=== PATIENT | male | born 1960 | race Caucasian/White ===

== ENCOUNTER 2022-03-14 09:44 | Outpatient (CLI) | payer BC, SELFPAY | END 2022-03-14 09:45 | disposition home or self-care (01) | LOC: NFLDREF 16:44 | PROVIDERS: PCP Family Medicine; Visit Provider Emergency Medicine | DX: R19.7 Diarrhea, unspecified (principal) | CPT/HCPCS: 87329 ==

== ENCOUNTER 2022-05-14 07:56 | Day surgery (SDC) | payer BC, SELFPAY ==
[2022-05-14] VITALS (13 sets, daily range): BP systolic 135–167; BP diastolic 77–102; PULSE 41–62; RESP 12–16; TEMP 36.1–36.7; O2SAT 92–98; BMI 29.2
[2022-05-14] MEDS: SODIUM CHLORIDE 0.9 % (FLUSH) 10 ML SYRINGE IVF (08:35)
[2022-05-14] MEDS: LACTATED RINGERS 1000 ML 1,000 ML 100 ML IV (08:35)
[2022-05-14] MEDS: CEFAZOLIN 2 GM INJ IVP (09:15)
[2022-05-14] MEDS: BUPIVACAINE 0.25% 30 ML INJECTION (09:20)
--- NOTE | 2022-05-14 10:09 | P.GSOP_ITS ---
Operative Note Date of procedure: 05/14/22 Type of Procedure: 1. Open umbilical hernia repair with mesh. Procedure Description: After discussing the risks and benefits of the procedure, the patient signed informed consent.? The operative site was marked and the patient was brought to the operating room and placed on the operating table in supine position.? Care was taken to pad the patient's pressure points.?? The patient was then intubated by anesthesia.?? The operative site was then prepped and draped in the usual sterile fashion.? A time-out was then performed. ? Local anesthetic was injected at the surgical site. A curvilinear skin incision was made with a scalpel just below umbilicus. Subcutaneous tissue was dissected with electrocautery down to the hernia sac and anterior fascia. The hernia sac was dissected off of the anterior fascia and subcutaneous fat around the fascial defect was dissected away from the fascial defect with cautery. Preperitoneal fat was incarcerated through the fascial defect. I then developed preperitoneal space for mesh insertion. Hemostasis was achieved with cautery. The fascial defect was approximately 2.2 cm. A 6.3 cm in diameter Ventralex ST mesh patch was then inserted into preperitoneal space and secured to the fascia using 0-0 Neurolon interrupted stitches. I examined my closure and no defects were identified between the fascia and the mesh. Fascia was re-approximated over the mesh with a running 2-0 Vicryl stitch. Additional local anesthetic was injected into the anterior fascia. An umbilicus was tacked down to the fascia with interrupted 3-0 Vicryl stitches. Subdermal layer was closed with interrupted sutures using 3-0 Vicryl. Skin was closed with 4-0 Monocryl using subcuticular stitch. Steri strips were applied over the incision. I then placed a folded ster ile 4x4 gauze over the incision and covered it with tape. All counts were correct at the end of the case. Patient tolerated the procedure well and was transferred to PACU without any complications. Findings: Umbilical hernia with incarcerated preperitoneal fat. Repaired with medium- sized mesh. Anesthesia: GETA Surgeon: Chela Lua MD Condition: stable Disposition: PACU
--- NOTE | 2022-05-14 10:17 | W.ANESCHARGE ---
Anesthesia Charges Start Date/Time Anesthesia Start Date: 05/14/22 Anesthesia Start Time: 09:03 Stop Date/Time Anesthesia Stop Date: 05/14/22 Anesthesia Stop Time: 10:15 Summary Emergency: No
--- NOTE | 2022-05-14 10:27 | W.ANESCHARGE ---
Anesthesia Charges Start Date/Time Anesthesia Start Date: 05/14/22 Anesthesia Start Time: 09:03 Stop Date/Time Anesthesia Stop Date: 05/14/22 Anesthesia Stop Time: 10:15 Summary Emergency: No
[2022-05-14] MEDS: TRAMADOL HCL 50 MG TABLET PO (11:14)
== END 2022-05-14 12:05 | disposition home or self-care (01) ==
PROVIDERS: PCP Family Medicine; Visit Provider Surgery
PROC: (CPT 49587; principal; 2022-05-14 09:20)
DX: K42.0 Umbilical hernia with obstruction, without gangrene (principal)
CPT/HCPCS: 49587; 00750; A9270; C1781; J0330; J0690; J1720; J2250; J2405; J2704; J2710; J3010; J3490; J7120

== ENCOUNTER 2022-06-01 07:56 | Outpatient (CLI) | payer BC, SELFPAY | END 2022-06-01 07:57 | disposition home or self-care (01) | LOC: RAD 07:56 | PROVIDERS: PCP Family Medicine; Visit Provider Family Medicine | DX: R01.1 Cardiac murmur, unspecified (principal) | CPT/HCPCS: 93306 ==

== ENCOUNTER 2022-07-25 08:03 | Outpatient (CLI) | payer BC, SELFPAY ==
[2022-07-25 10:13] LABS: Albumin* 4.3 g/dL (3.3-5.0); Chloride* 105 mmol/L (96-114); Sodium* 140 mmol/L (135-149)
[2022-07-25 10:14] LABS: Potassium* 3.9 mmol/L (3.6-5.1)
[2022-07-25 10:15] LABS: Cholesterol* 166 mg/dL (90-199); Estimated Glomerular Filt Rate 86 ml/min
[2022-07-25 10:16] LABS: Alanine Aminotransferase* 24 U/L (4-50); Alkaline Phosphatase* 85 U/L (40-150); Aspartate Amino Transferase* 24 U/L (12-35); Bilirubin Total* 0.8 mg/dL (0.1-1.5); Blood Urea Nitrogen* 14 mg/dL (7-30); Carbon Dioxide* 30 mmol/L (20-32); Glucose* 87 mg/dL (60-115); Total Protein* 6.8 g/dL (6.0-8.3); Triglycerides* 105 mg/dL (40-149)
[2022-07-25 10:17] LABS: Calcium* 8.6 mg/dL (8.4-10.6); HDL Cholesterol* 61 mg/dL (>=40); LDL Cholesterol Calculated 84 mg/dL (<100)
== END 2022-07-25 08:04 | disposition home or self-care (01) ==
LOC: NFLDREF 08:03
PROVIDERS: PCP Family Medicine; Visit Provider Family Medicine
DX: Z00.00 Encounter for general adult medical examination without abnormal findings (principal); I10 Essential (primary) hypertension; N40.0 Benign prostatic hyperplasia without lower urinary tract symptoms; Z12.5 Encounter for screening for malignant neoplasm of prostate; Z13.6 Encounter for screening for cardiovascular disorders
CPT/HCPCS: 80053; 80061; 84153

== ENCOUNTER 2023-08-01 11:10 | Outpatient (CLI) | payer OTHER, SELFPAY | END 2023-08-01 11:11 | disposition home or self-care (01) | PROVIDERS: PCP Family Medicine; Visit Provider Family Medicine | DX: Z00.00 Encounter for general adult medical examination without abnormal findings (principal); I10 Essential (primary) hypertension; N40.0 Benign prostatic hyperplasia without lower urinary tract symptoms; Z13.6 Encounter for screening for cardiovascular disorders; Z12.5 Encounter for screening for malignant neoplasm of prostate | CPT/HCPCS: 80048; 80061; 84153 ==

== ENCOUNTER 2025-01-19 08:35 | Outpatient (CLI) | payer OTHER, SELFPAY | END 2025-01-19 08:36 | disposition home or self-care (01) | LOC: NFLDREF 01-21 12:52 | PROVIDERS: PCP Family Medicine; Referring Provider Family Medicine; Visit Provider Family Medicine | DX: Z00.00 Encounter for general adult medical examination without abnormal findings (principal); N40.0 Benign prostatic hyperplasia without lower urinary tract symptoms; I10 Essential (primary) hypertension; Z13.6 Encounter for screening for cardiovascular disorders; Z12.5 Encounter for screening for malignant neoplasm of prostate | CPT/HCPCS: 80053; 80061; G0103 ==

== ENCOUNTER 2025-03-16 07:16 | Outpatient (CLI) | payer OTHER, SELFPAY ==
--- NOTE | 2025-03-16 09:09 | P.ANES_ITS ---
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
--- NOTE | 2025-03-16 09:09 | W.ANESCHARGE ---
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
== END 2025-03-16 07:17 | disposition home or self-care (01) ==
LOC: OP CLINIC 07:16
PROVIDERS: PCP Family Medicine; Visit Provider Surgery
DX: Z12.11 Encounter for screening for malignant neoplasm of colon (principal); Z80.0 Family history of malignant neoplasm of digestive organs
CPT/HCPCS: 00812; 45378; J2704